=== PATIENT | male | born 1965 | race Caucasian/White ===

== ENCOUNTER → 2019-05-05 | Outpatient (CLI) | payer OTHER ==
--- NOTE | 2019-05-05 16:44 | RADIOLOGY REPORT (SQ) ---
EXAM DESCRIPTION: MRI LT LOWER EXTREMITY COMBO COMPLETED DATE/TIME: 05/05/2019 3:37 pm REASON FOR STUDY: (R22.42)LOCALIZED SWELLING, MASS AND LUMP, LEFT LOWER LIMB R22.42 LOCALIZED SWELL ING, MASS AND LUMP, LEFT LOWER LIMB COMPARISON: None. TECHNIQUE: Multiplanar fat and fluid sensitive sequences precontrast including T1, T2 fat saturated or STIR. Post contrast T1 fat saturated sequences after IV gadolinium administration. CONTRAST TYPE AND DOSE: 20 mL Dotarem. RENAL FUNCTION: Not indicated. LIMITATIONS: Fat saturation artifact. FINDINGS: Status post BKA. There is a skin marker on the posterior aspect of the proximal lower leg . No soft tissue masses identified in this region. Serpiginous low T1 and high T2 signal linear fashion along the distal 3 cm of the stump shaft. There is apparent enhancement in the inferior stump on postcontrast sequences, however this is probably se condary to fat saturation artifact. No soft tissue mass or abscess. IMPRESSION: No mass identified in the area in question. Presumed artifact in the BKA stump. Is there any clinical suspicion of osteomyelitis? TECHNICAL DOCUMENTATION: JOB ID: [id number] [employer]- All Rights Reserved Reading location - IP/workstation name: [email or web address]
== END ==
LOC: RAD 13:04
PROVIDERS: ATTEND Physician Assistant
DX: R22.42 Localized swelling, mass and lump, left lower limb (principal)
CPT/HCPCS: 82565